=== PATIENT | female | born 1945 | race Caucasian/White ===

== ENCOUNTER → 2019-04-12 | Outpatient (REF) | payer MEDICARE | LOC: M LAB REF 19:13 | PROVIDERS: ATTEND Physician Assistant | DX: R05 Cough (principal); R19.7 Diarrhea, unspecified; R11.10 Vomiting, unspecified ==

== ENCOUNTER 2024-03-04 00:04 | Emergency (ER) | payer MEDICARE ==
[~2024-03-04] VITALS: Ht 157.5 cm; Wt 94.4 kg
[2024-03-04 00:48] VITALS: BP 186/86
[2024-03-04] MEDS ORDERED: ACET650T61 PO (03:52)
[2024-03-04] MEDS ORDERED: AMLO1TAB24 PO (03:52)
[2024-03-04] MEDS ORDERED: METF500T13 PO (03:52)
[2024-03-04] MEDS ORDERED: METO1TAB32 PO (03:52)
[2024-03-04] MEDS ORDERED: HOME MED LIST COMPLETE! XX SCH (03:55)
[2024-03-04] MEDS ORDERED: GLUCAGON INJ 1MG VIAL SC PRN (06:35)
[2024-03-04] MEDS ORDERED: MOM 30ML SUSPENSION UDC PO PRN (06:35)
[2024-03-04] MEDS ORDERED: DEXTROSE 50% 50ML SYRINGE IV PRN (06:35)
[2024-03-04] MEDS ORDERED: ACETAMINOPHEN 325 MG TAB PO PRN (06:35)
[2024-03-04] MEDS ORDERED: GLUCOSE 4 GM CHEW PO PRN (06:35)
[2024-03-04] MEDS: INSULIN LISPRO (NovoLOG) PER UNIT SC SCH (07:30)
[2024-03-04] MEDS: ENOXAPARIN 40MG/0.4ML SYRINGE (J1650 PER 10MG) SC SCH (09:00)
[2024-03-04] MEDS: DOCUSATE SODIUM 100MG CAPSULE PO SCH (09:00)
[2024-03-04] MEDS ORDERED: HYDR-3713 PO (10:23)
[2024-03-04 11:36] VITALS: BP 163/72; TEMP 97.7; O2SAT 96
[2024-03-04] MEDS ORDERED: amLODIPine 5 MG TAB PO SCH (21:00)
[2024-03-04] MEDS ORDERED: METOPROLOL SUCC *XL* 25MG TAB (TopROL *XL*) PO SCH (21:00)
[2024-03-04] MEDS ORDERED: INSULIN LISPRO (NovoLOG) PER UNIT SC SCH (21:00)
== END 2024-03-04 11:45 | disposition home or self-care (01) ==
LOC: M ED 00:04
DX: S72.115A Nondisplaced fracture of greater trochanter of left femur, initial encounter for closed fracture (principal); Y92.019 Unspecified place in single-family (private) house as the place of occurrence of the external cause; Y93.9 Activity, unspecified; Y99.9 Unspecified external cause status; Z88.2 Allergy status to sulfonamides; Z91.040 Latex allergy status; Z79.1 Long term (current) use of non-steroidal anti-inflammatories (NSAID); Z79.84 Long term (current) use of oral hypoglycemic drugs; Z79.899 Other long term (current) drug therapy